=== PATIENT | male | born 1985 | race Caucasian/White ===

== ENCOUNTER 2020-12-14 00:12 | Emergency (ER) | payer BC, OTHER ==
[~2020-12-14] VITALS: Ht 177.8 cm; Wt 100.0 kg
[~2020-12-14 00:12] MED LIST: METR500T PO; ONDA4TAB7 PO; OXYC20TA42 PO; PANT40TA3 PO; TEMA15CA6 PO; TRAM-47 PO
[2020-12-14 00:21] VITALS: BP 117/74
--- NOTE | 2020-12-14 00:26 | NUR ---
PT BROUGHT IN BY [facility] FROM HOME C/O N/V/D ABDOMINAL PAIN, CHEST PAIN, STATES IT FEELS LIKE HIS STOMACH IS ABOUT TO EXPLODE. PT HAS HAD AN EXTENSIVE AMOUNT OF VOMITING AND DIARRHEA, DENIES ANY BLOOD IN STOOL OR VOMTITUS. ONSET OF SYMPTOMS SUNDAY, PROGRESSIVELY WORSE. NO HX OF SAME. PT GIVEN 1L NSS BY EMS, 4MG IV ZOFRAN, AND 100MCG FENTANYL. PT IS FULLY VACCINATED (YOLLEGE) DENIES ANY RECENT TRAVEL, SICK CONTACTS, OR ANY REMARKABLE PMH OR SURGICAL HX.
[2020-12-14] MEDS ORDERED: SODIUM CHLORIDE FLUSH 10ML SYR IVF ONE (00:30)
[2020-12-14] MEDS ORDERED: SODIUM CHLORIDE 0.9% 1,000ML IVBOLUS ONE (00:30)
[2020-12-14] MEDS ORDERED: MORPHINE SULFATE 4 MG/ML, 1ML IVPush PRN (00:30)
[2020-12-14] MEDS ORDERED: PROCHLORPERAZINE 5 MG/ML, 2ML IVPush ONE (00:30)
[2020-12-14] MEDS ORDERED: PANTOPRAZOLE 40 MG IV ONE (00:43)
[2020-12-14] MEDS ORDERED: PROCHLORPERAZINE 5 MG/ML, 2ML ONE (00:43)
[2020-12-14] MEDS ORDERED: MORPHINE SULFATE 4 MG/ML, 1ML ONE (00:43)
[2020-12-14 00:53] LABS: BASOPHILS % (AUTO) 1 % (0-1); EOSINOPHILS % (AUTO) 1 % (1-7); LYMPHOCYTES % (AUTO) 8 % (22-44); MEAN CORPUSCULAR HEMOGLOBIN 30.9 pg (27.5-34.5); MEAN CORPUSCULAR HGB CONC 35.4 g/dL (33.2-36.2); MEAN PLATELET VOLUME 8.2 fL (7.4-10.4); MONOCYTES % (AUTO) 10 % (2-9); NEUTROPHILS % (AUTO) 81 % (42-75); PLATELET COUNT 176 x10^3/uL (130-400); RED BLOOD COUNT 5.39 x10^6/uL (4.38-5.82); RED CELL DISTRIBUTION WIDTH 12.4 % (9.4-14.8)
--- NOTE | 2020-12-14 00:55 | NUR ---
UPDATED DR. CAMARA, PT ENDORSING CP AND SOB, REQUESTED ORDER FOR EKG. ZAHRA SIVLESTRE AGREED WITH THIS INTERVENTION, ADDITIONAL IMAGING ORDERED WELL. PT PROVIDED W/ URINAL AND EDUCATED ON NEED FOR URINE SAMPLE.
[2020-12-14 01:03] LABS: ANION GAP 7 mmol/L (5-15); CALCIUM 8.3 mg/dL (8.5-10.1); CHLORIDE 104 mmol/L (98-107)
[2020-12-14 01:12] LABS: ALANINE AMINOTRANSFERASE 40 U/L (12-78); ALKALINE PHOSPHATASE 50 U/L (45-117); BILIRUBIN,TOTAL 1.3 mg/dL (0.2-1.0); CREATININE 1.14 mg/dL (0.7-1.3); TOTAL PROTEIN 6.8 g/dL (6.4-8.2)
[2020-12-14] MEDS ORDERED: ONDANSETRON 2MG/ML, 2ML ONE (02:58)
--- NOTE | 2020-12-14 03:10 | NUR ---
Patient/Caregiver given discharge instructions and they have confirmed that they understand the instructions. Patient ambulatory with steady gait. NAD, all questions answered appropriately, denies additional needs at this time. No personal belongings left in room after discharge.
[2020-12-14] MEDS ORDERED: ONDANSETRON 2MG/ML, 2ML IVPush ONE (03:30)
[2020-12-14] MEDS ORDERED: PANTOPRAZOLE 40 MG IV IVPush SCH (09:00)
== END 2020-12-14 03:27 | disposition home or self-care (01) ==
LOC: ED 03:15
DX: R10.84 Generalized abdominal pain (principal); R11.2 Nausea with vomiting, unspecified; R19.7 Diarrhea, unspecified
CPT/HCPCS: 36415; 71045; 76700; 80053; 83690; 85025; 93005; 96361; 96374; 96375; 99285; C9113; J0780; J2270; J2405; J7030